=== PATIENT | male | born 1965 | race Native Hawaiian/Other Pacific Islander ===

== ENCOUNTER 2021-02-08 00:30 | Observation (INO) | payer OTHER ==
[~2021-02-08] VITALS: Ht 175.3 cm; Wt 76.3 kg
[2021-02-08] VITALS (13 sets, daily range): BP systolic 118–163; BP diastolic 49–102; TEMP 97.9–98.7; Ht 175.3 cm; Wt 76.3 kg
[2021-02-08 00:51] LABS: PLATELET COUNT 115 K/uL (142-355)
[2021-02-08 00:58] LABS: POTASSIUM 3.3 mmol/L (3.6-5.2); SODIUM 143 mmol/L (136-145)
[2021-02-08 01:05] LABS: PARTIAL THROMBOPLASTIN TIME 29.6 SECONDS (24.5-33.6)
[2021-02-08] MEDS ORDERED: FURO40TA93 PO (13:25)
[2021-02-08] MEDS ORDERED: K-TAB20 MEQ PO (13:25)
[2021-02-08] MEDS ORDERED: PROAIR DIG108 MCG/AC INH (14:04)
== END 2021-02-08 12:30 | disposition home or self-care (01) ==
LOC: ED 00:33 → MED/SURG 04:32
PROVIDERS: ADMIT Family Medicine; ATTEND Internal Medicine
DX: R06.09 Other forms of dyspnea (principal); G89.29 Other chronic pain; F19.10 Other psychoactive substance abuse, uncomplicated; Z72.0 Tobacco use; J44.1 Chronic obstructive pulmonary disease with (acute) exacerbation; I50.9 Heart failure, unspecified
CPT/HCPCS: 36415; 80053; 80307; 80320; 82550; 83880; 84484; 85027; 85379; 85610; 85730; 87635; 93005; 94640; 94664; 96374; 99220; 99284; G0378; J1940; J2930; Q9963; U0003

== ENCOUNTER 2021-02-11 08:20 | Emergency (ER) | payer OTHER ==
[~2021-02-11] VITALS: Ht 175.3 cm; Wt 72.1 kg
[~2021-02-11 08:20] MED LIST: FURO40TA93 PO; K-TAB20 MEQ PO; PROAIR DIG108 MCG/AC INH
[2021-02-11 08:27] VITALS: TEMP 98
[2021-02-11 09:10] VITALS: BP 142/99
== END 2021-02-11 09:10 | disposition home or self-care (01) ==
LOC: ED 08:20
DX: J44.9 Chronic obstructive pulmonary disease, unspecified (principal); F17.210 Nicotine dependence, cigarettes, uncomplicated
CPT/HCPCS: 94664; 99282

== ENCOUNTER 2021-02-16 05:03 | Emergency (ER) | payer OTHER ==
[~2021-02-16] VITALS: Ht 175.3 cm; Wt 78.0 kg
[2021-02-16 05:06] VITALS: TEMP 99.2
[2021-02-16 06:00] LABS: PLATELET COUNT 145 K/uL (142-355)
[2021-02-16 06:16] LABS: POTASSIUM 3.5 mmol/L (3.6-5.2)
[2021-02-16 06:21] LABS: PARTIAL THROMBOPLASTIN TIME 28.7 SECONDS (24.5-33.6)
[2021-02-16 08:50] VITALS: BP 128/92
== END 2021-02-16 08:50 | disposition home or self-care (01) ==
LOC: ED 05:03
PROVIDERS: Hospitalist
DX: I50.9 Heart failure, unspecified (principal); J40 Bronchitis, not specified as acute or chronic; J44.9 Chronic obstructive pulmonary disease, unspecified; F17.210 Nicotine dependence, cigarettes, uncomplicated; Z20.822 Contact with and (suspected) exposure to COVID-19
CPT/HCPCS: 36415; 80053; 80320; 81000; 82550; 83880; 84484; 85027; 85610; 85730; 87635; 93005; 96365; 96375; 99284; J0696; J1940; J2930; U0003

== ENCOUNTER 2021-02-17 10:17 | Emergency (ER) | payer OTHER ==
[2021-02-17] VITALS (8 sets, daily range): BP systolic 125–141; BP diastolic 86–97; TEMP 97.3–98.6; Ht 175.3 cm; Wt 78.2 kg
[~2021-02-17] VITALS: Ht 175.3 cm; Wt 78.2 kg
[2021-02-17 10:47] LABS: PLATELET COUNT 164 K/uL (142-355)
[2021-02-17 10:48] LABS: POTASSIUM 3.9 mmol/L (3.6-5.2)
[2021-02-17 18:53] LABS: POTASSIUM 3.1 mmol/L (3.6-5.2)
[2021-02-18 00:17] VITALS: BP 137/86; TEMP 98.2
[2021-02-18 04:00] VITALS: BP 117/78; TEMP 97.9
[2021-02-18 04:51] LABS: PLATELET COUNT 131 K/uL (142-355)
[2021-02-18 05:21] LABS: POTASSIUM 3.5 mmol/L (3.6-5.2)
[2021-02-18 08:00] VITALS: BP 115/73; TEMP 97.6
[2021-02-18 12:23] VITALS: BP 82/52; TEMP 97.3
[2021-02-18 16:00] VITALS: BP 114/64; TEMP 97.8
[2021-02-18 20:00] VITALS: BP 117/77; TEMP 97.3
[2021-02-19 00:21] VITALS: BP 103/72; TEMP 98.2
[2021-02-19 04:00] VITALS: BP 126/81; TEMP 97.7
[2021-02-19 05:57] LABS: PLATELET COUNT 129 K/uL (142-355)
[2021-02-19 06:11] LABS: POTASSIUM 4.4 mmol/L (3.6-5.2)
[2021-02-19 08:00] VITALS: BP 123/87; TEMP 97.9
[2021-02-19 12:00] VITALS: BP 103/72; BP 135/81; TEMP 97.7; TEMP 98.2
[2021-02-19 16:00] VITALS: BP 125/79; TEMP 98.3
[2021-02-19 20:00] VITALS: BP 122/71; TEMP 97.7
[2021-02-20] VITALS: BP 132/87; TEMP 98.4
[2021-02-20 04:00] VITALS: BP 123/93; TEMP 97.9
[2021-02-20 08:00] VITALS: BP 111/69; TEMP 98
[2021-02-20 12:00] VITALS: BP 133/96; TEMP 97.6
[2021-02-20] MEDS ORDERED: ENTERIC COATED325 MG PO (12:50)
[2021-02-20] MEDS ORDERED: PRED10TA27 PO (12:52)
[2021-02-20] MEDS ORDERED: CARV3.12 PO (12:55)
[2021-02-20 20:00] VITALS: BP 129/97; TEMP 97.6
[2021-02-21 00:03] VITALS: BP 114/92; TEMP 97.7
[2021-02-21 04:00] VITALS: BP 133/79; TEMP 97.9
[2021-02-21 08:00] VITALS: BP 136/95; TEMP 98.4
[2021-02-21 12:00] VITALS: BP 137/91; TEMP 97.3
[2021-02-21] MEDS ORDERED: FURO40TA93 PO (13:28)
== END 2021-02-21 16:37 | disposition home or self-care (01) ==
LOC: ED 10:20 → MED/SURG 12:24 → ED 12:24 → MED/SURG 12:25
PROVIDERS: Hospitalist; Internal Medicine; ADMIT Internal Medicine Endocrinology, Diabetes & Metabolism; ATTEND Internal Medicine Endocrinology, Diabetes & Metabolism
DX: R07.89 Other chest pain (principal); J44.1 Chronic obstructive pulmonary disease with (acute) exacerbation; I11.0 Hypertensive heart disease with heart failure; I50.20 Unspecified systolic (congestive) heart failure; Z91.19 Patient's noncompliance with other medical treatment and regimen; Z59.0 Homelessness
CPT/HCPCS: 36415; 80048; 80053; 80320; 82550; 83735; 83880; 84484; 85027; 85610; 85730; 87040; 87635; 93005; 94640; 94664; 94760; 96365; 96372; 96374; 96375; 99220; 99284; G0378; J0696; J1650; J1885; J1940; J2060; J2920; Q9963; U0003

== ENCOUNTER 2021-02-24 18:44 | Emergency (ER) | payer OTHER ==
[~2021-02-24] VITALS: Ht 175.3 cm; Wt 78.0 kg
[~2021-02-24 18:44] MED LIST changes: +CARV3.12 PO; +ENTERIC COATED325 MG PO; +PRED10TA27 PO
[2021-02-24 19:11] VITALS: BP 134/73; TEMP 98.3
== END 2021-02-24 21:20 | disposition home or self-care (01) ==
LOC: ED 18:44
DX: M54.89 Other dorsalgia (principal); G89.29 Other chronic pain
CPT/HCPCS: 99281

== ENCOUNTER 2021-02-25 02:53 | Emergency (ER) | payer OTHER ==
[~2021-02-25] VITALS: Ht 175.3 cm; Wt 78.0 kg
[2021-02-25 05:01] LABS: POTASSIUM 3.2 mmol/L (3.6-5.2)
[2021-02-25 05:09] LABS: PARTIAL THROMBOPLASTIN TIME 28.4 SECONDS (24.5-33.6)
[2021-02-25 05:10] LABS: PLATELET COUNT 157 K/uL (142-355)
[2021-02-25 05:45] VITALS: BP 111/80; TEMP 98
== END 2021-02-25 05:45 | disposition home or self-care (01) ==
LOC: ED 02:53
PROVIDERS: Hospitalist
DX: I50.9 Heart failure, unspecified (principal)
CPT/HCPCS: 80053; 82550; 83880; 84484; 85027; 85610; 85730; 93005; 96374; 99284; J1940